=== PATIENT | female | born 1980 | race Caucasian/White ===

== ENCOUNTER 2019-08-12 11:57 | Emergency (ER) | payer SELFPAY ==
[~2019-08-12] VITALS: Ht 172.7 cm; Wt 60.2 kg
[2019-08-12 12:11] VITALS: BP 110/55
[2019-08-12] MEDS ORDERED: LIDOCAINE-MPF 1%, 2ML ONE (12:25)
[2019-08-12] MEDS ORDERED: CEFTRIAXONE 1,000 MG ONE (12:25)
[2019-08-12] MEDS ORDERED: CEFTRIAXONE 1,000 MG IM ONE (12:30)
--- NOTE | 2019-08-12 12:32 | NUR ---
MEDS ADMIN PER MAR
== END 2019-08-12 12:44 | disposition home or self-care (01) ==
LOC: ED 12:38
DX: L03.211 Cellulitis of face (principal); F17.200 Nicotine dependence, unspecified, uncomplicated; K08.89 Other specified disorders of teeth and supporting structures
CPT/HCPCS: 96372; 99283; J0696